=== PATIENT | female | born 1930 | race Caucasian/White ===

== ENCOUNTER 2020-04-07 16:03 | Emergency (ER) | payer MEDICARE, BC ==
[~2020-04-07] VITALS: Ht 154.9 cm; Wt 49.0 kg
[~2020-04-07 16:03] MED LIST: CONEST.625 PO; CYCL0.05OP OP; CYCL10 PO; HYDACE5 PO; MELO7.5 PO; OXYC5 PO; PRED20 PO; Prednisone20 MG PO; SOMA350 MG PO
[2020-04-07] MEDS ORDERED: Norco 5-325 Ta1 EACH PO (18:13)
== END 2020-04-07 18:48 | disposition home or self-care (01) ==
LOC: ER 16:03
DX: S42.211A Unspecified displaced fracture of surgical neck of right humerus, initial encounter for closed fracture (principal); R93.6 Abnormal findings on diagnostic imaging of limbs; Z88.2 Allergy status to sulfonamides; Z79.899 Other long term (current) drug therapy; J44.9 Chronic obstructive pulmonary disease, unspecified; W18.30XA Fall on same level, unspecified, initial encounter
CPT/HCPCS: 73030; 73200; 76377; 99284-25; A9270-GY